=== PATIENT | male | born 1960 | race Caucasian/White ===

== ENCOUNTER 2020-11-18 10:06 | Emergency (ER) | payer SELFPAY ==
[~2020-11-18] VITALS: Ht 175.3 cm; Wt 127.0 kg
[2020-11-18] MEDS ORDERED: IBUPROFEN 400 MG TABLET PO ONE (10:15)
[2020-11-18] MEDS ORDERED: ACETAMINOPHEN 325 MG TABLET PO ONE (10:15)
--- NOTE | 2020-11-18 10:20 | NUR ---
at bedside for assessment
--- NOTE | 2020-11-18 10:25 | NUR ---
Radiology noted at bedside for x-ray of bilateral knees
[2020-11-18] MEDS ORDERED: ACETAMINOPHEN 325 MG TABLET ONE (10:30)
[2020-11-18] MEDS ORDERED: IBUPROFEN 400 MG TABLET ONE (10:31)
[2020-11-18] MEDS ORDERED: HYDR-3980 PO ×3 (11:48→11:59)
--- NOTE | 2020-11-18 12:00 | NUR ---
Instructed to follow up with MD Chopra for chronic bilateral knee pain
--- NOTE | 2020-11-18 12:10 | NUR ---
Patient discharged to home in stable condition. Patient able to ambulate with stready gait. Written and verbal after care instructions given. Took all belongings, no signs of acute distress noted. Patient verbalizes understanding of instructions. Stressed follow up or return to ER for worsening s/s.
[2020-11-18 12:13] VITALS: BP 132/89
== END 2020-11-18 12:00 | disposition home or self-care (01) ==
LOC: ER 10:06
DX: M25.562 Pain in left knee (principal); M25.561 Pain in right knee; E66.9 Obesity, unspecified; Z68.41 Body mass index [BMI] 40.0-44.9, adult; Q74.1 Congenital malformation of knee; M25.462 Effusion, left knee; M25.461 Effusion, right knee; M17.11 Unilateral primary osteoarthritis, right knee
CPT/HCPCS: A4663